=== PATIENT | female | born 1950 | race Caucasian/White ===

== ENCOUNTER 2016-10-16 11:55 | Observation (INO) | payer MEDICARE, OTHER ==
[2016-10-16] MEDS ORDERED: NS 0.9% 1000 ML* 2,000 ML IV ONE (12:27)
[2016-10-16 12:46] LABS: Hematocrit 37 % (35-47); Hemoglobin 11.7 g/dl (12.0-16.0); Mean Corpuscular HGB Conc 32 g/dl (31-36); Mean Corpuscular Hemoglobin 26 pg (27-31); Mean Corpuscular Volume 81 fL (80-97); Mean Platelet Volume 9 um3 (7.4-10.4); Red Blood Count 4.52 10^6/ul (4.0-5.4); Red Cell Distribution Width 23 % (10.5-15)
[2016-10-16 12:47] LABS: Add Diff/Slide Review? Slide Review Added; Comments Flag Yes
[2016-10-16 13:18] LABS: Albumin 4.4 g/dL (3.2-5.2); BUN/Creatinine Ratio 22.6 (8-20); C Reactive Protein 17.55 mg/L (< 5.00); Calcium 9.6 mg/dL (8.6-10.3); EGFR African American 124.2 (>60); EGFR Non-African American 96.6 (>60); Globulin 2.6 g/dL (2-4); Potassium 3.6 mmol/L (3.5-5.0); Total Bilirubin 0.3 mg/dL (0.2-1.0)
[2016-10-16] MEDS ORDERED: Ondansetron INJ* 2 MG/ML VIAL IV ONE (13:34)
[2016-10-16] MEDS ORDERED: Morphine INJ* 4 MG/ML 1 ML SYRINGE IV ONE (13:34)
[2016-10-16] MEDS ORDERED: Iohexol 300* (CONTRAST) 10 ML SDV IV ONE (13:36)
[2016-10-16] MEDS ORDERED: Ondansetron INJ* 2 MG/ML VIAL IV PRN (15:10)
--- NOTE | 2016-10-16 15:11 | RAD ---
CLINICAL HISTORY: Bloody stools, left lower quadrant pain COMPARISON: None TECHNIQUE: Multiple contiguous axial CT scans were obtained of the abdomen and pelvis after the administration of intravenous contrast. Coronal and sagittal multiplanar reformations are submitted for review. Oral contrast was administered. Delayed images were obtained through the abdomen and pelvis. FINDINGS: LUNG BASES: The lung bases are clear. LIVER: The liver is diffusely low in attenuation compared to the spleen. There are no focal hepatic parenchymal masses. BILE DUCTS: There is no intrahepatic or extrahepatic biliary dilatation. GALLBLADDER: The gallbladder is not visualized. Surgical clips are noted in the gallbladder fossa. PANCREAS: The pancreas is normal, without mass or ductal dilatation. SPLEEN: Normal in size and appearance. UPPER GI TRACT: Evaluation of the gastrointestinal tract is limited by incomplete gastric distention. There is a moderate hiatal hernia. SMALL BOWEL AND MESENTERY: The small bowel is normal in contour, course, and caliber. There is no obstruction or dilatation. COLON: There are multiple diverticula of the sigmoid colon. There is mucosal thickening and pericolonic inflammation extending from the hepatic flexure through the descending colon, not clearly related to the diverticula. ADRENALS: Normal bilaterally. KIDNEYS: The kidneys are normal in shape, size, contour, and axis. There is no hydronephrosis or nephrolithiasis. BLADDER: The bladder is smooth in contour. PELVIC ORGANS: A 3.5 cm right ovarian cyst is noted. The uterus is not clearly visualized. AORTA: The aorta is normal. IVC: Unremarkable LYMPH NODES: There is no lymphadenopathy by size criteria. ABDOMINAL WALL: There is no evidence for abdominal wall hernia. BONES AND SOFT TISSUES: There are mild diffuse degenerative changes. OTHER: None IMPRESSION: COLONIC MUCOSAL THICKENING AND PERICOLONIC INFLAMMATORY CHANGE OF THE DESCENDING COLON CONSISTENT WITH COLITIS. SIGMOID DIVERTICULOSIS. THIS APPEARS DISTINCT FROM THE AREA OF COLITIS. FATTY LIVER. HIATAL HERNIA. RIGHT OVARIAN CYST.
[2016-10-16] MEDS: NS 0.9% 1000 ML* 1,000 ML IV SCH (15:56)
--- NOTE | 2016-10-16 16:24 | ED ---
Arjun Farley Alfonso, scribed for Alec Devine MD on 10/16/16 at 1219 . GI/ HPI - HPI Summary HPI Summary: This patient is a 66 year old F presenting to [facility] accompanied by with a chief complaint of rectal bleeding since yesterday afternoon. She reports blood in the stool with a hard BM yesterday afternoon and that the rectal bleeding has continued since. She states there is a few tablespoons of blood an hour and it feels like I have to have a BM but it is just blood and gas. She reports the blood is bright red, and not maroon or black. The patient rates the aching pain 5/10 in severity. Symptoms aggravated by nothing. Symptoms alleviated by nothing. Patient reports chills, LLQ abdominal pain ( radiates to Left lower back), nausea, diarrhea (3 times since onset), weakness, and lightheaded dizziness. Patient denies fever, change in diet, dysuria, rectal pain, and calf pain. Pt reports these symptoms have never happened before. She denies recent travels. She reports her last colonoscopy was in 2012. PSHx of appendectomy (approximately 1989). PMHx of GERD and anemia. - History of Current Complaint Chief Complaint: EDGIBleed Time Seen by Provider: 10/16/16 12:12 Stated Complaint: ABD PAIN, LOWER ABD PAIN, BLOOD IN STOOL Hx Obtained From: Patient Onset/Duration: Started Hours Ago - Yesterday afternoon, Still Present Timing: Constant Severity: Moderate Current Severity: Moderate Vaginal Bleeding Description: Bright Red Pain Intensity: 5 Location of Pain: LLQ Pain Characteristics: Aching Associated Signs and Symptoms: Positive: Other: - Patient reports chills, LLQ abdominal pain (radiates to Left lower back), nausea, diarrhea (3 times since onset), weakness, and lightheaded dizziness. Patient denies fever, change in diet, dysuria, rectal pain, and calf pain. Aggravating Factor(s): Nothing Alleviating Factor(s): Nothing - Allergy/Home Medications Allergies/Adverse Reactions: Allergies Allergy/AdvReac Type Severity Reaction Status Date / Time No Known Allergies Allergy Verified 10/16/16 11:58 Home Medications: Home Medications Fexofenadine HCl [Allergy Relief] 60 mg PO DAILY 10/16/16 [History Confirmed ] Multivitamins/Minerals TAB* [Theragran/minerals TAB*] 1 tab PO DAILY 10/16/16 [ History Confirmed 10/16/16] PMH/Surg Hx/FS Hx/Imm Hx Endocrine/Hematology History: Reports: Hx Anemia Denies: Hx Diabetes Cardiovascular History: Denies: Hx Hypertension GI History: Reports: Hx Gastroesophageal Reflux Disease Sensory History: Denies: Hx Deafness Opthamlomology History: Denies: Hx Legally Blind - Surgical History Surgery Procedure, Year, and Place: appendectomy (approximately 1989). Infectious Disease History: No Infectious Disease History: Denies: Traveled Outside the [place] in Last 30 Days - Family History Known Family History: Positive: Other - Colon cancer grandmother. - Social History Alcohol Use: Rare Hx Substance Use: No Substance Use Type: Reports: None Hx Tobacco Use: No Review of Systems Positive: Chills. Negative: Fever Positive: Abdominal Pain - LLQ radiates to Left lower back, Diarrhea, Nausea, Other - Rectal bleeding; negative change in diet, and rectal pain. Negative: dysuria Positive: Other - Negative calf pain. Neurological: Other - weakness, and lightheaded dizziness All Other Systems Reviewed And Are Negative: Yes Physical Exam - Summary Physical Exam Summary: The patient is well-nourished in no acute distress and in no acute pain. The skin is warm and dry and pale. Decreased skin turgor HEENT: The head is normocephalic and atraumatic. The pupils are equal and reactive. The conjunctivae are clear and without drainage.~Nares are patent and without drainage. Mouth reveals dry mucous membranes and the throat is without erythema and exudate. The external ears are intact. The ear canals are patent and without drainage. The tympanic membranes are intact. Neck is supple with full range of motion and non-tender. There are no carotid bruits. There is no neck vein distension. Respiratory: Chest is non-tender. Lungs are clear to auscultation and breath sounds are symmetrical and equal. Cardiovascular: Heart is regular rate and rhythm. There is no murmur or rub auscultated. Pulses are symmetrical and equal. Abdomen: Left CVA tenderness. LLQ tenderness. Abdomen non distended. There are hypoactive bowel sounds heard in all four quadrants and there is no organomegaly palpated. Rectal Exam: Female RN present. External hemorrhoid. Stools mucousy and bloody. Musculoskeletal: There is no back pain noted. Extremities are non-tender with full range of motion. There is 2 second capillary refill. There is no peripheral edema or calf tenderness elicited. Neurological: Patient is alert and oriented to person, place and time. The patient has symmetrical motor strength in all four extremities. Cranial nerves are grossly intact. Deep tendon reflexes are symmetrical and equal in all four extremities. Psychiatric: The patient has an appropriate affect and does not exhibit any anxiety or depression. Triage Information Reviewed: Yes Vital Signs On Initial Exam: Initial Vitals Temp Pulse Resp BP Pulse Ox 98.1 F 83 16 188/82 98 10/16/16 11:58 10/16/16 11:58 10/16/16 11:58 10/16/16 11:58 10/16/16 11:58 Vital Signs Reviewed: Yes Diagnostics - Vital Signs Vital Signs Temp Pulse Resp BP Pulse Ox 10/16/16 12:06 99.1 F 85 16 147/64 96 10/16/16 11:58 98.1 F 83 16 188/82 98 - Laboratory Lab Results: Lab Results 10/16/16 10/16/16 10/16/16 Range/Units 12:31 12:31 12:31 WBC 10.0 (3.5-10.8) 10^3/ul RBC 4.52 (4.0-5.4) 10^6/ul Hgb 11.7 L (12.0-16.0) g/dl Hct 37 (35-47) % MCV 81 (80-97) fL MCH 26 L (27-31) pg MCHC 32 (31-36) g/dl RDW 23 H (10.5-15) % Plt Count 249 (150-450) 10^3/ul MPV 9 (7.4-10.4) um3 Neut % (Auto) 72.8 (38-83) % Lymph % (Auto) 17.3 L (25-47) % [place] % (Auto) 6.8 (1-9) % Eos % (Auto) 2.6 (0-6) % Baso % (Auto) 0.5 (0-2) % Absolute Neuts (auto) 7.3 (1.5-7.7) 10^3/ul Absolute Lymphs (auto) 1.7 (1.0-4.8) 10^3/ul Absolute Monos (auto) 0.7 (0-0.8) 10^3/ul Absolute Eos (auto) 0.3 (0-0.6) 10^3/ul Absolute Basos (auto) 0.1 (0-0.2) 10^3/ul Absolute Nucleated RBC 0 10^3/ul Nucleated RBC % 0 INR (Anticoag Therapy) 0.94 (0.89-1.11) Sodium 142 (133-145) mmol/L Potassium 3.6 (3.5-5.0) mmol/L Chloride 106 (101-111) mmol/L Carbon Dioxide 29 (22-32) mmol/L Anion Gap 7 (2-11) mmol/L BUN 14 (6-24) mg/dL Creatinine 0.62 (0.51-0.95) mg/dL Est GFR ( Amer) 124.2 (>60) Est GFR (Non-Af Amer) 96.6 (>60) BUN/Creatinine Ratio 22.6 H (8-20) Glucose 106 H (70-100) mg/dL Lactic Acid (0.5-2.0) mmol/L Calcium 9.6 (8.6-10.3) mg/dL Total Bilirubin 0.30 (0.2-1.0) mg/dL AST 18 (13-39) U/L ALT 17 (7-52) U/L Alkaline Phosphatase 58 (34-104) U/L C-Reactive Protein 17.55 H (< 5.00) mg/L Total Protein 7.0 (6.4-8.9) g/dL Albumin 4.4 (3.2-5.2) g/dL Globulin 2.6 (2-4) g/dL Albumin/Globulin Ratio 1.7 (1-3) Amylase 68 (29-103) U/L Lipase 26 (11.0-82.0) U/L 10/16/16 Range/Units 12:31 WBC (3.5-10.8) 10^3/ul RBC (4.0-5.4) 10^6/ul Hgb (12.0-16.0) g/dl Hct (35-47) % MCV (80-97) fL MCH (27-31) pg MCHC (31-36) g/dl RDW (10.5-15) % Plt Count (150-450) 10^3/ul MPV (7.4-10.4) um3 Neut % (Auto) (38-83) % Lymph % (Auto) (25-47) % [place] % (Auto) (1-9) % Eos % (Auto) (0-6) % Baso % (Auto) (0-2) % Absolute Neuts (auto) (1.5-7.7) 10^3/ul Absolute Lymphs (auto) (1.0-4.8) 10^3/ul Absolute Monos (auto) (0-0.8) 10^3/ul Absolute Eos (auto) (0-0.6) 10^3/ul Absolute Basos (auto) (0-0.2) 10^3/ul Absolute Nucleated RBC 10^3/ul Nucleated RBC % INR (Anticoag Therapy) (0.89-1.11) Sodium (133-145) mmol/L Potassium (3.5-5.0) mmol/L Chloride (101-111) mmol/L Carbon Dioxide (22-32) mmol/L Anion Gap (2-11) mmol/L BUN (6-24) mg/dL Creatinine (0.51-0.95) mg/dL Est GFR ( Amer) (>60) Est GFR (Non-Af Amer) (>60) BUN/Creatinine Ratio (8-20) Glucose (70-100) mg/dL Lactic Acid 1.0 (0.5-2.0) mmol/L Calcium (8.6-10.3) mg/dL Total Bilirubin (0.2-1.0) mg/dL AST (13-39) U/L ALT (7-52) U/L Alkaline Phosphatase (34-104) U/L C-Reactive Protein (< 5.00) mg/L Total Protein (6.4-8.9) g/dL Albumin (3.2-5.2) g/dL Globulin (2-4) g/dL Albumin/Globulin Ratio (1-3) Amylase (29-103) U/L Lipase (11.0-82.0) U/L Result Diagrams: 10/16/16 12:31 10/16/16 12:31 Lab Statement: Any lab studies that have been ordered have been reviewed, and results considered in the medical decision making process. - CT A/P CT Interpretation Completed By: Radiologist - COLONIC MUCOSAL THICKENING AND PERICOLONIC INFLAMMATORY CHANGE OF THE DESCENDING COLON CONSISTENT WITH COLITIS. SIGMOID DIVERTICULOSIS. THIS APPEARS DISTINCT FROM THE AREA OF COLITIS. FATTY LIVER. HIATAL HERNIA. RIGHT OVARIAN CYST. ED physician has reviewed this radiology report and agrees. - EKG 1230 Cardiac Rate: NL - BPM 91 EKG Rhythm: Sinus Rhythm EKG Interpretation: Normal axis. No STEMI. GIGU Course/Dx - Course Assessment/Plan: This patient is a 66 year old F presenting to [facility] accompanied by with a chief complaint of rectal bleeding since yesterday afternoon. She reports blood in the stool with a hard BM yesterday afternoon and that the rectal bleeding has continued since. She states there is a few tablespoons of blood an hour and it feels like I have to have a BM but it is just blood and gas. She reports the blood is bright red, and not maroon or black. The patient rates the aching pain 5/10 in severity. Symptoms aggravated by nothing. Symptoms alleviated by nothing. Patient reports chills, LLQ abdominal pain (radiates to Left lower back), nausea, diarrhea (3 times since onset), weakness, and lightheaded dizziness. Patient denies fever, change in diet, dysuria, rectal pain, and calf pain. Pt reports these symptoms have never happened before. She denies recent travels. She reports her last colonoscopy was in 2012. PSHx of appendectomy (approximately 1989). PMHx of GERD and anemia. An EKG reveals NSR. CT A/P reveals COLONIC MUCOSAL THICKENING AND PERICOLONIC INFLAMMATORY CHANGE OF THE DESCENDING COLON. CONSISTENT WITH COLITIS. SIGMOID DIVERTICULOSIS. THIS APPEARS DISTINCT FROM THE AREA OF COLITIS. FATTY LIVER. HIATAL HERNIA. RIGHT OVARIAN CYST. ED physician has reviewed this radiology report and agrees. Consulted Dr. Bowen (hospitalist ) who agrees to admit. The patient is agreeable with this plan. - Diagnoses Differential Diagnoses - Female: Colitis, Diverticulitis, Ischemic Bowel, Rectal Fissure, Other - lower gi bleed Provider Diagnoses: Lower GI bleed, Colitis - Physician Notifications Discussed Care Of Patient With: Jaya Bowen Time Discussed With Above Provider: 14:11 Instructed by Provider To: Other - Consulted Dr. Bowen (hospitalist) who agrees to admit. Discharge - Discharge Plan Condition: Stable Disposition: ADMITTED TO [facility] The documentation as recorded by the Arjun lebron Alfonso accurately reflects the service I personally performed and the decisions made by me, Alec Devine MD.
[2016-10-16] MEDS: Ciprofloxacin 400MG IVPREMIX(* 400 MG/200 ML BAG IVPB SCH (16:45)
[2016-10-16] MEDS: metroNIDAZOLE IV 500 MG/100ML* 500 MG/100 ML BAG IVPB SCH (18:25)
[2016-10-16 18:39] LABS: Hematocrit 32 % (35-47); Hemoglobin 10.2 g/dl (12.0-16.0)
[2016-10-16 18:48] LABS: Comments Flag Yes
[2016-10-16] MEDS: Acetaminophen TAB* 325 MG PO PRN (21:16)
[2016-10-17] MEDS: metroNIDAZOLE IV 500 MG/100ML* 500 MG/100 ML BAG IVPB SCH ×2 (01:17→10:05)
--- NOTE | 2016-10-17 01:28 | HP ---
CC: Dr. Flowers * [facility] MEDICINE HISTORY AND PHYSICAL: DATE OF ADMISSION: 10/16/16 PRIMARY CARE PROVIDER: Dr. Flowers. ATTENDING PHYSICIAN: Jaya Bowen MD * (dictation provided by Leonor Rachel NP) CHIEF COMPLAINT: Bright red blood per rectum. HISTORY OF PRESENT ILLNESS: Ms. Sierra is a 66-year-old female with no chronic medical issues who presents to the hospital today with concern for bright red blood per rectum. Ms. Sierra states she was in her normal state of [place] yesterday. She did go to the [facility]. She states she had a sandwich and a large milk shake while there. Last night, she had some hard stool and then afterwards, she noted some diarrhea with some blood mixed in. This diarrhea lasted for about 2 hours. Since then, she has had bright red blood per rectum, which she describes as about 2 tablespoons at a time and mixed with mucus at times. Now, she is again noting a little bit of stool with blood. She is having cramping and lower quadrant abdominal pain. She denies any nausea or vomiting. She has felt warm and chilled at times, but did not think she had a fever. She denies any chest pain or shortness of breath. In the emergency room, Ms. Sierra had a hemoglobin that was 11.7, hematocrit 37. Her CRP is 17.55. Her abdomen and pelvis CT shows concern for colitis with mucosal thickening and pericolonic inflammatory change of the descending colon. Vitals are stable with blood pressure running in the systolic in the 140s with heart rate in the 80s. PAST MEDICAL HISTORY: 1. Hysterectomy. 2. Cholecystectomy. 3. Appendectomy. 4. Two left-sided knee surgeries. 5. Foot surgery on the right. MEDICATIONS: 1. Multivitamin daily. 2. Fexofenadine p.r.n. daily. ALLERGIES: No known drug allergies. FAMILY HISTORY: Mother and father in 2005, both from pancreatic cancer. SOCIAL HISTORY: No report of alcohol, tobacco, or drug use. The patient states her is the healthcare proxy. REVIEW OF SYSTEMS: A 14-point review of systems was completed with Ms. Sierra and all those not mentioned above were negative. PHYSICAL EXAMINATION GENERAL: Ms. Sierra is sitting in the bed. She is in no acute distress. VITAL SIGNS: Temperature 98.3, heart rate 86, respiratory rate 20, O2 saturation 99% on room air, blood pressure 148/82. LUNGS: Clear to auscultation bilaterally with no accessory muscle use and good aeration. HEART: S1, S2. No murmur, rub, or gallop and regular. ABDOMEN: Soft. There is tenderness across the lower abdomen radiating over into the left back. Bowel sounds are positive. No rebound or guarding. EXTREMITIES: No cyanosis or edema. SKIN: Intact. NEURO: She is alert, she is oriented x3. She moves all extremities equally. There is no facial asymmetry or focal weakness. Extraocular movements are intact. LABORATORY DATA/DIAGNOSTIC STUDIES: Sodium 142, potassium 3.6, chloride 106, serum bicarbonate 29, BUN 14, creatinine 0.62, glucose 106. Lactic acid 1.0. CRP 17.55. WBC 10, hemoglobin 11.7, hematocrit 37, platelet count 249. INR is 0.94. Again, abdomen and pelvis CT is read as follows: "Chronic mucosal thickening and pericolonic inflammatory change of the descending colon consistent with colitis, sigmoid diverticulosis, this appears distinct from the area of colitis , fatty liver, hiatal hernia, right ovarian cyst." ASSESSMENT: Ms. Sierra is a 66-year-old female with no chronic medical problems and a history of cholecystectomy, appendectomy, and hysterectomy who presents to the hospital today with concern for sudden onset of bright red blood per rectum, found to have colitis consistent with an infectious colitis. Plans are for observation in the hospital for the followin. Infectious colitis: The patient is describing a minimal amount of blood and her hemoglobin is at this point stable as her are vitals. Plan to recheck hemoglobin and hematocrit later this evening and in the a.m. She will have Cipro and Flagyl. Fortunately at this point, she is afebrile. She has no leukocytosis and her CRP is essentially normal. She will have a clear liquid diet. 2. DVT prophylaxis with SCDs in this patient with a lower GI bleed. 3. Code status is full code. TIME SPENT: Approximately 60 minutes were spent on the admission of this patient, more than half of the time was spent with her at the bedside reviewing the events leading up to this hospitalization, performing the physical examination and reviewing my plan of care. LEONOR RACHEL, [facility] [id number]/[facility] #: [id number] EDMUNDO
[2016-10-17] MEDS: Ciprofloxacin 400MG IVPREMIX(* 400 MG/200 ML BAG IVPB SCH (04:11)
[2016-10-17 05:31] LABS: Hematocrit 31 % (35-47); Mean Corpuscular HGB Conc 33 g/dl (31-36); Mean Corpuscular Hemoglobin 27 pg (27-31); Mean Corpuscular Volume 82 fL (80-97); Mean Platelet Volume 10 um3 (7.4-10.4); Red Blood Count 3.73 10^6/ul (4.0-5.4); Red Cell Distribution Width 23 % (10.5-15); White Blood Count 8.3 10^3/ul (3.5-10.8)
[2016-10-17 05:33] LABS: Add Diff/Slide Review? Slide Review Added; Comments Flag Yes
[2016-10-17 05:51] LABS: Blood Urea Nitrogen 7 mg/dL (6-24); CO2 Carbon Dioxide 25 mmol/L (22-32); Calcium 7.9 mg/dL (8.6-10.3); Chloride 110 mmol/L (101-111); EGFR African American 145.7 (>60); EGFR Non-African American 113.3 (>60); Glucose 122 mg/dL (70-100); Sodium 139 mmol/L (133-145)
[2016-10-17 05:54] LABS: Anion Gap 4 mmol/L (2-11)
[2016-10-17] MEDS: Acetaminophen TAB* 325 MG PO PRN (08:27)
--- NOTE | 2016-10-17 08:48 | PN ---
Subjective Date of Service: 10/17/16 Interval History: Patient seen and examined at bedside. Pt states that she is feeling well this morning. Denies fever, chills, shortness of breath, chest discomfort, N/V/D. Pt denies any further blood per rectum. Pt would like to try and advance her diet this morning. Family History: Unchanged from Admission Social History: Unchanged from Admission Past Medical History: Unchanged from Admission Objective Active Medications: Acetaminophen (Tylenol Tab*) 650 mg PO Q6H PRN Reason: PAIN Ciprofloxacin/Dextrose (Cipro 400 Mg Ivpremix(*)) 400 mg in 200 mls @ 200 mls/ hr IVPB Q12H CHARLES Metronidazole/Sodium Chloride (Flagyl 500 Mg Ivpb*) 500 mg in 100 mls @ 100 mls /hr IVPB Q8H CHARLES Sodium Chloride (Ns 0.9% 1000 Ml*) 1,000 mls @ 75 mls/hr IV PER RATE CHARLES Ondansetron HCl (Zofran Inj*) 4 mg IV Q6H PRN Reason: NAUSEA Vital Signs 10/16/16 10/16/16 10/16/16 14:30 14:58 15:11 Temperature 99 F 98.3 F Pulse Rate 85 85 86 Respiratory 15 16 20 Rate Blood Pressure 143/81 143/81 148/82 (mmHg) O2 Sat by Pulse 96 99 Oximetry 10/16/16 10/16/16 10/17/16 15:26 23:47 03:43 Temperature 98.7 F 97.9 F 98.4 F Pulse Rate 86 88 80 Respiratory 20 16 16 Rate Blood Pressure 148/82 129/63 137/72 (mmHg) O2 Sat by Pulse 99 99 96 Oximetry 10/17/16 08:06 Temperature 98.0 F Pulse Rate 76 Respiratory 15 Rate Blood Pressure 137/68 (mmHg) O2 Sat by Pulse 95 Oximetry Oxygen Devices in Use Now: None Appearance: NAD, laying in bed Eyes: No Scleral Icterus Ears/Nose/Mouth/Throat: Mucous Membranes Moist Respiratory: Symmetrical Chest Expansion and Respiratory Effort, Clear to Auscultation Cardiovascular: NL Sounds; No Murmurs; No JVD, RRR Abdominal: NL Sounds; No Tenderness; No Distention Extremities: No Edema Skin: No Rash or Ulcers Neurological: Alert and Oriented x 3, NL Muscle Strength and Tone Lines/Tubes/Other Access: Clean, Dry and Intact Peripheral IV - site benign Nutrition: Taking PO's Result Diagrams: 10/17/16 11:04 10/17/16 06:16 Additional Lab and Data: Assess/Plan/Problems-Billing Assessment: Ms. Sierra is a 66 yo female with no significant PMH who presented to the emergency room for sudden onset of bright red blood per rectum and was found to have findings consistent with infectious colitis. - Patient Problems (1) Infectious colitis Code(s): A09 - INFECTIOUS GASTROENTERITIS AND COLITIS, UNSPECIFIED SNOMED Code (s): 21940252 Comment: - Afebrile - HH down slightly from 11.7/37 on admission to 12/18 this AM - Will recheck HH later today - Continue Cipro and Flagyl (2) DVT prophylaxis Code(s): UAP6687 - SNOMED Code(s): 624341800 Comment: - SCDs - Chemical DVT prophylaxis contraindicated in setting of GI bleed. (3) Full code status Code(s): Z78.9 - OTHER SPECIFIED HEALTH STATUS SNOMED Code(s): 150675168 Status and Disposition: OBV. Discharge to home when medically stable, possibly later today.
[2016-10-17] MEDS: NS 0.9% 1000 ML* 1,000 ML IV SCH (10:08)
[2016-10-17 11:45] LABS: Comments Flag Yes; Hematocrit 31 % (35-47); Hemoglobin 9.7 g/dl (12.0-16.0)
[2016-10-17 14:46] VITALS: BP 132/66
--- NOTE | 2016-10-18 06:29 | DS ---
CC: Dr. Vahe Flowers * DISCHARGE SUMMARY: DATE OF ADMISSION: 10/16/16 DATE OF DISCHARGE: 10/17/16 ATTENDING PROVIDER: David Francois MD * (DICTATED BY SHY DAVENPORT NP) PRIMARY DIAGNOSIS: Colitis. SECONDARY DIAGNOSIS: None. STUDIES WHILE IN THE HOSPITAL: Abdomen and pelvis CT from 10/16/16. Radiologist's impression: Colonic mucosal thickening and pericolonic inflammatory changes in the descending colon consistent with colitis. Sigmoid diverticulosis. This appeared distinct from the area of colitis. Fatty liver. Hiatal hernia. Right ovarian cyst. DISCHARGE MEDICATIONS: New medications: 1. Cipro 500 mg oral twice daily for 9 more days. 2. Flagyl 500 mg oral 3 times daily for 9 more days. Continued home medications: 1. Multivitamin 1 tablet oral daily. 2. Fexofenadine 60 mg oral daily. 3. Acetaminophen 650 mg oral every 6 hours as needed for pain. HISTORY OF PRESENT ILLNESS: Ms. Sierra is a 66-year-old female with no significant past medical history, who presented to the emergency room with complaints of bright red blood per rectum. Ms. Sierra stated being in her normal state of health the day prior. She went to the [facility] and had a sandwich and a large milkshake while she was there. She then reported having hard stools and afterwards she noted some diarrhea with blood mixed in. The diarrhea lasted for approximately 2 hours and then she developed a bright red blood per rectum, which she described as approximately 2 tablespoons at a time mixed with mucus at times. The patient then started noting a little bit more stool mixed in with the blood. She also reported cramping and lower quadrant abdominal pain. She denied any nausea or vomiting. She felt warm and occasionally had chills but did not feel that she had a fever. Due to the patient's concern of blood per rectum, she presented to the emergency room for further evaluation of her symptoms. While in the emergency room, the patient had a hemoglobin of 11.7 and hematocrit of 37. Her CRP was 17.55. She had an abdomen and pelvis CT showing concern for colitis, mucosal thickening, and pericolonic inflammatory change of the descending colon. Vital signs were stable. Her systolic blood pressures were in the 140s with heart rate in the 80s. Hospitalists were asked to evaluate the patient for admission. While in the hospital, the patient was treated with Cipro and Flagyl for possible infectious colitis. The patient's hemoglobin and hematocrit remained stable. She also remained afebrile with no leukocytosis. Her CRP was essentially normal. She initially was placed on a clear liquid diet, transitioned to a regular diet, which she was tolerating well. The patient felt ready to go home today, had no further bleeding per rectum or further bloody stools. Ms. Sierra is stable for discharge to home today. Vital signs are as follows: Temperature 97.7, heart rate 69, respiratory rate 16, O2 sat 97% on room air, blood pressure 132/66. DISCHARGE PLAN: Ms. Sierra will be discharged to home today. Activity as tolerated. Regular diet. Due to the possibility of this being an infectious colitis, she will be continued on Cipro 500 mg oral twice daily for 9 more days in addition to Flagyl 500 mg 3 times daily for 9 more days. The patient should be seen in followup by her primary care provider, Dr. Flowers. Dr. Flowers's office will call the patient with an appointment date and time. The patient has been instructed to return to the emergency room for any chest pain, shortness of breath. This is a summarized report of a complex medical history and hospital stay. For further details, please see the entire medical record. TIME SPENT: Time for this discharge was approximately 50 minutes; greater than half of that was spent with the patient and discussing discharge plans and instructions. CONDITION ON DISCHARGE: Stable. Reviewed by LAZARA MCCLAIN 10/21/16 [id number]/[facility] #: [id number] EDMUNDO
== END 2016-10-17 16:10 | disposition home or self-care (01) ==
LOC: ED 11:55 → MED 14:23
PROVIDERS: ADMIT Internal Medicine; ATTEND Internal Medicine
DX: K52.9 Noninfective gastroenteritis and colitis, unspecified (principal); K92.1 Melena; R10.32 Left lower quadrant pain; R51 Headache; K57.30 Diverticulosis of large intestine without perforation or abscess without bleeding
CPT/HCPCS: 36415; 74177; 80048; 80053; 82150; 82272; 83605; 83690; 85014; 85018; 85025; 85610; 86140; 87040; 93005; 96374; 96375; 99284; A9270-GY; G0378; J0744; J2270; J2405; Q9967

== ENCOUNTER 2018-05-07 17:47 | Emergency (ER) | payer MEDICARE ==
[2018-05-07] MEDS ORDERED: Aspirin 81 mg CHEW TAB* 81 MG TAB.CHEW PO ONE ×2 (19:49→20:01)
--- NOTE | 2018-05-07 19:58 | ED ---
HPI Chest Pain - HPI Summary HPI Summary: This patient is a 67 year old F presenting to [facility] upon referral from Dr. Flowers with a chief complaint of intermittent CP since [address] Flowers 's office, pt had a negative physical exam, an EKG showing SR and incomplete RBBB, no acute changes, and pt had a point of care troponin and d-dimer in his office that were both negative. Pt is referred for further cardiac evaluation, including a four hour troponin. Pt is normally healthy, on no medications. The patient reports that the pain worsened and radiated to her back and into her bilateral arms since 12:00 05/06/18. The patient rates the pain 7/10 in severity but notes that her pain has resolved since her arrival at [facility]. Pt states she had only one episode of fleeting (seconds) chest pain prior to being evaluated by me in the ED. Symptoms aggravated by nothing. Symptoms alleviated by nothing. Patient denies SOB. The patient was initially seen in the waiting room at 19:49 to initiate her workup. - History of Current Complaint Chief Complaint: EDChestPainROMI Hx Obtained From: Patient, Other: - Dr. Flowers Onset/Duration: Started Weeks Ago - 1 year, Atraumatic, Resolved, Worse Since - 1 day ago Time of Onset: 12:00 - on 05/06/18 Timing: Intermittent, Lasting Weeks - 1 year Initial Severity: Moderate Current Severity: Moderate Pain Intensity: 7 Pain Scale Used: 0-10 Numeric Chest Pain Location: Left Anterior Chest Pain Radiates: Yes Chest Pain Radiates To:: Back, Arm - bilateral arms Character: Tightness Aggravating Factor(s): Exertion Alleviating Factor(s): Nothing Associated Signs and Symptoms: Positive: Chest Pain, Back Pain. Negative: Shortness of Breath - Additional Pertinent History Primary Care Physician: [id number] - Allergy/Home Medications Allergies/Adverse Reactions: Allergies Allergy/AdvReac Type Severity Reaction Status Date / Time lansoprazole [From Prevacid] Allergy See Comment Verified 05/07/18 18:07 PMH/Surg Hx/FS Hx/Imm Hx Previously Healthy: Yes Endocrine/Hematology History: Reports: Hx Anemia Denies: Hx Diabetes Cardiovascular History: Denies: Hx Hypertension GI History: Reports: Hx Gastroesophageal Reflux Disease Sensory History: Reports: Hx Contacts or Glasses Denies: Hx Legally Blind, Hx Deafness, Hx Hearing Aid Opthamlomology History: Reports: Hx Contacts or Glasses Denies: Hx Legally Blind - Surgical History Surgery Procedure, Year, and Place: appendectomy (approximately 1989). Infectious Disease History: No Infectious Disease History: Denies: Traveled Outside the [place] in Last 30 Days - Family History Known Family History: Positive: Other - Colon cancer grandmother, no fam hx cardiac disease - Social History Lives: With Family Alcohol Use: Rare Hx Substance Use: No Substance Use Type: Reports: None Hx Tobacco Use: No Smoking Status (MU): Never Smoked Tobacco Review of Systems Negative: Fever Negative: Epistaxis Positive: Chest Pain Negative: Shortness Of Breath Gastrointestinal: Negative Positive: no symptoms reported Musculoskeletal: Other - back pain, bilateral arm pain Skin: Negative Neurological: Negative Psychological: Normal All Other Systems Reviewed And Are Negative: Yes Physical Exam - Summary Physical Exam Summary: Appearance: well-appearing, no pain distress, well-nourished Skin: Warm, color reflects adequate perfusion, dry Head: Normal Head/Face inspection, atraumatic Eyes: Conjunctiva clear ENT: Normal inspection Neck: Supple, no nodes, no JVD Respiratory: Lungs clear, normal breath sounds, no respiratory distress Cardio: RRR, No murmur, pulses normal, brisk capillary refill Abdomen: Soft, nontender Bowel sounds: Present Musculoskeletal: Strength Intact/ROM intact, no calf tenderness, no edema. Psychological: Normal Neuro: Alert, muscle tone normal, no focal deficit Triage Information Reviewed: Yes Vital Signs On Initial Exam: Initial Vitals Temp Pulse Resp BP Pulse Ox 98.5 F 78 16 181/103 99 05/07/18 18:01 05/07/18 18:01 05/07/18 18:01 05/07/18 18:01 05/07/18 18:01 Vital Signs Reviewed: Yes Diagnostics - Vital Signs Vital Signs Temp Pulse Resp BP Pulse Ox 05/07/18 18:01 98.5 F 78 16 181/103 99 - Laboratory Result Diagrams: 05/07/18 20:44 05/07/18 20:44 Lab Statement: Any lab studies that have been ordered have been reviewed, and results considered in the medical decision making process. - Radiology CXR Radiology Interpretation Completed By: ED Physician - Dr. Diez, pending official report Summary of Radiographic Findings: atelectasis right base - EKG 18:10 Cardiac Rate: NL - at 80 bpm EKG Rhythm: Sinus Rhythm ST Segment: Normal Ectopy: None EKG Comparison: No Significant Change - from EKG on 10/16/16 Summary of EKG Findings: An EKG at 18:10 reveals nml AV/IV CT, nml QTc, and nml axis. No acute changes. No change from EKG on 10/16/16. Re-Evaluation - Re-Evaluation First Eval Re-Evaluation Time: 23:00 Change: Improved - Pt denies further CP. No SOB. Discussed discharge instructions Chest Pain Course/Dx - Course Course Of Treatment: 67 yo F, otherwise healthy, no medications referred by Dr. Flowers for further evaluation of intermittent fleeting chest pain x 1 year, worsened yesterday with pain radiated to her back and both arms. Pt had neg trop and d-dimer and EKG in Dr. Flowers's office. Pt had EKG in ED also showing SR with no acute changes. Second troponin, drawn 4 hrs after first troponin in Dr. Flowers's office is also negative. Unofficial reading of CXR is negative, possible atelectasis R base. D-dimer at [facility] is also negative. No definite cause of pt's chest pain is identified, however pt remains asymptomatic without chest pain, except for one fleeting instance in the waiting room that lasted seconds. Pt's BP was in poor control in the ED. Pt is advised to have definite follow up with Dr. Flowers in the am, and to return to the ED if any new or worsening symptoms. Pt's is with pt, and both agree with discharge and follow up plan. - Chest Pain Differential Diagnosis/HQI/PQRI: Acute [place], ACS, Angina, CHF, Chest Wall, GI Disease, Lower Respiratory Infection, Pulmonary Embolism - Diagnoses Provider Diagnoses: Chest pain, Elevated BP without diagnosis of hypertension - Provider Notifications Discussed Care Of Patient With: Vahe Flowers Time Discussed With Above Provider: 17:30 Instructed by Provider To: Other - Dr. Flowers said he saw the patient today and referred her to the ED after an EKG revealed RBBB, negative d-dimer and negative troponin. He recommends a 4-hour repeat troponin and to have the patient make an appointment with him if it is negative. Discharge - Sign-Out/Discharge Documenting (check all that apply): Patient Departure - home Patient Received Moderate/Deep Sedation with Procedure: No - Discharge Plan Condition: Stable Disposition: HOME Patient Education Materials: Chest Pain (ED) Referrals: Vahe Flowers MD [Primary Care Provider] - 1 Day (Call Dr. Flowers in the morning to give him the results of your tests tonight. Please advise him to check the official xray reading, as tonight's reading is only preliminary. ) Additional Instructions: Your repeat troponin and d-dimer were both negative. Your other labs were also unremarkable. Dr. Diez read your chest xray tonight, and it is an unofficial reading, but she did not see any acute abnormalities, possible atelectasis of the right base. Please be sure to have Dr. Flowers check the official reading of this. We will also contact you if there is any change in therapy needed based on the chest xray reading. We have given you a copy of your EKG that you may bring to Dr. Flowers. He will arrange further testing and follow up for you as needed. Return to the ER if you have any new or worsening symptoms. - Billing Disposition and Condition Condition: STABLE Disposition: Home - Attestation Statements Document Initiated by Nataliya: Yes Documenting Scribe: Natalie Hall Provider For Whom Nataliya is Documenting (Include Credential): Micheline Diez MD Scribe Attestation: Natalie Farley scribed for Micheline Diez MD on 05/08/18 at 0357. Scribe Documentation Reviewed: Yes Provider Attestation: The documentation as recorded by the Natalie lebron accurately reflects the service I personally performed and the decisions made by , Micheline Diez MD Status of Scribroc Document: Viewed
[2018-05-07 21:05] LABS: ABS Basophils 0.1 10^3/ul (0-0.2); ABS Eosinophils 0.3 10^3/ul (0-0.6); ABS Lymphocytes 2.3 10^3/ul (1.0-4.8); ABS Monocytes 0.4 10^3/ul (0-0.8); ABS Neutrophils 3.3 10^3/ul (1.5-7.7); ABS Nucleated RBC 0 10^3/ul; Eosinophil % 4.5 %; Hematocrit 37 % (33-41); Hemoglobin 12.3 g/dL (12.0-16.0); Lymphocyte % 35.9 %; Mean Corpuscular HGB Conc 34 g/dL (31-36); Mean Corpuscular Hemoglobin 30 pg (27-31); Mean Corpuscular Volume 89 fL (80-97); Mean Platelet Volume 9.1 fL (7.4-10.4); Nucleated Red Blood Cells % 0.1; Platelet Count 240 10^3/uL (150-450); Red Blood Count 4.13 10^6 /uL (3.70-4.87); Red Cell Distribution Width 16 % (10.5-15); White Blood Count 6.4 10^3/uL (3.5-10.8)
[2018-05-07 21:12] LABS: Albumin 4.2 g/dL (3.2-5.2); Albumin/Globulin Ratio 1.8 (1-3); BUN/Creatinine Ratio 20.3 (8-20); EGFR Non-African American 85.1 (>60); Globulin 2.4 g/dL (2-4); Magnesium 2.1 mg/dL (1.9-2.7); Total Bilirubin 0.2 mg/dL (0.2-1.0); Total Protein 6.6 g/dL (6.4-8.9)
[2018-05-07 21:16] LABS: CKMB ng/mL 1.1 ng/mL (0.6-6.3)
[2018-05-07 21:21] LABS: Activated Partial Thrombo Time 31.7 seconds (26.0-36.3)
[2018-05-07 22:17] LABS: Potassium 3.9 mmol/L (3.5-5.0)
[2018-05-07 23:08] VITALS: BP 153/94
== END 2018-05-07 23:17 | disposition home or self-care (01) ==
LOC: ED 17:47
DX: R07.9 Chest pain, unspecified (principal); R03.0 Elevated blood-pressure reading, without diagnosis of hypertension; K21.9 Gastro-esophageal reflux disease without esophagitis; M54.9 Dorsalgia, unspecified
CPT/HCPCS: 36415; 71046; 80053; 82550; 82553; 83605; 83735; 83880; 84484; 85025; 85379; 85610; 85730; 93005; 99283; A9270-GY